=== PATIENT | female | born 1970 | race Caucasian/White ===

== ENCOUNTER 2024-07-02 08:02 | Emergency (ER) | payer BC ==
--- NOTE | 2024-07-02 09:43 | ER ---
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 ll1 Coronavirus screen: Client denies travel out of the [place] in the last 14 days. At this time, the client does not indicate any symptoms associated with coronavirus-19. Ebola Screen: Patient denies travel to an Ebola-affected area in the 21 days before illness onset. Initial Sepsis Screen: Does the patient meet any 2 criteria? No. Patient's initial sepsis screen is negative. Does the patient have a suspected source of infection? No. Patient's initial sepsis screen is negative. Risk Assessment: Do you want to hurt yourself or someone else? Patient reports no desire to harm self or others. Onset of symptoms was July 02, 2024. 08:17 Method Of Arrival: Ambulatory ll1 08:17 Acuity: YADIRA 4 ll1 Triage Assessment: 08:15 General: Appears uncomfortable, Behavior is calm, cooperative, appropriate for age. ll1 Pain: Complains of pain in right wrist Quality of pain is described as aching. Musculoskeletal: Reports pain in right wrist. 10:12 Injury Description: Bruise. 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 - Infectious Disease History:: Denies. - Social history:: Smoking status: Patient denies any tobacco usage or history of. Screenin:11 [facility] ED Fall Risk Assessment (Adult) History of falling in the last 3 months, ll1 including since admission Yes- single mechanical fall (1 pt) Confusion or Disorientation No (0 pts) Intoxicated or Sedated No (0 pts) Impaired Gait No (0 pts) Mobility Assist Device Used No (0 pt) Altered Elimination Yes (1 pt) Score/Fall Risk Level 0 - 2 = Low Risk Maintained a safe environment, Hourly rounding (assess needs \T\ fall precautionary measures) done. Abuse screen: Denies threats or abuse. Nutritional screening: No deficits noted. Tuberculosis screening: No symptoms or risk factors identified. Assessment: 10:10 Reassessment: No changes from previously documented assessment. Patient and/or family ll1 updated on plan of care and expected duration. Pain level reassessed. Patient is alert, oriented x 3, equal unlabored respirations, skin warm/dry/pink. 10:10 Musculoskeletal: Circulation, motion, and sensation intact. Capillary refill < 3 ll1 seconds, in left fingers. Vital Signs: 08:17 BP 131 / 98; Pulse 73; Resp 16; Temp 97.5; Pulse Ox 99% ; Weight 81.65 kg; Height 5 ft. ll1 3 in. ; Pain 10/10; 10:10 BP 143 / 90; Pulse 62; Resp 16; Pulse Ox 99% ; ll1 08:17 Body Mass Index 31.89 (81.65 kg, 160.02 cm) ll1 08:17 Pain Scale: Adult ll1 ED Course: 08:05 Patient arrived in ED. im 08:08 Marylu Chaudhari FNP-C is PHCP. kb 08:08 Abrahan Hester DO is Attending Physician. kb 08:16 Patient has correct armband on for positive identification. Provided Education on: ER ll1 procedures and process. 08:18 Triage completed. ll1 08:18 Arm band placed on Patient placed in an exam room, on a stretcher. ll1 09:04 Wrist Right 3 View In Process Unspecified. EDMS 09:32 Tonya Juarez, WIL is Primary Nurse. ll1 10:03 Orthoglass splint: Sugar tong splint applied on right arm. Sling applied to right arm. zm 10:11 No provider procedures requiring assistance completed. Patient did not have IV access ll1 during this emergency room visit. Administered Medications: No medications were administered Medication: 10:12 VIS not applicable for this client. ll1 Outcome: 09:42 Discharge ordered by . kb 10:11 Discharged to home ambulatory, ll1 10:11 Condition: stable 10:11 Discharge instructions given to patient, Instructed on discharge instructions, follow up and referral plans. no drinking with medication, no driving heavy equipment, medication usage, Demonstrated understanding of instructions, follow-up care, medications, Prescriptions given X 1, 10:13 Patient left the ED. ll1 Signatures: Dispatcher [employer] EDMS Marylu Chaudhari, Tonya Palacio RN RN ll1 Tash Argueta Itzel
--- NOTE | 2024-07-02 09:43 | EDPHYS ---
Physician Documentation [facility] Name: Faith Conte Age: 54 yrs Sex: Female : 1970 Arrival Date: 07/02/2024 Time: 08:02 Bed 11 Private MD: ED Physician Abrahan Hester HPI: 07/02 08:20 This 54 yrs old Female presents to ER via Ambulatory with complaints of Wrist Injury - kb right. 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 kb States she was walking her dog, he tried to run after a cat and twisted her wrist. Denies any other injuries. . 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 - Infectious Disease History:: Denies. - Social history:: Smoking status: Patient denies any tobacco usage or history of. ROS: 08:21 Constitutional: As per HPI kb Exam: 08:21 Constitutional: This is a well developed, well nourished patient who is awake, alert, kb and in no acute distress. Head/Face: Normocephalic, atraumatic. ENT: Moist Mucous membranes Respiratory: Respirations even and unlabored. No increased work of breathing. Talking in full sentences Skin: Warm, dry with normal turgor. Normal color. Neuro: Awake and alert, GCS 15, oriented to person, place, time, and situation. 08:21 Musculoskeletal/extremity: Extremities: grossly normal except: noted in the right wrist: decreased ROM, pain, tenderness, ROM: limited active range of motion due to pain, Circulation is intact in all extremities. Sensation intact. Vital Signs: 08:17 BP 131 / 98; Pulse 73; Resp 16; Temp 97.5; Pulse Ox 99% ; Weight 81.65 kg; Height 5 ft. ll1 3 in. ; Pain 10/10; 10:10 BP 143 / 90; Pulse 62; Resp 16; Pulse Ox 99% ; ll1 08:17 Body Mass Index 31.89 (81.65 kg, 160.02 cm) ll1 08:17 Pain Scale: Adult ll1 MDM: 08:08 Medical Screening Exam initiated kb 09:28 Differential diagnosis: dislocation, closed fracture, sprain. Data reviewed: vital kb signs, nurses notes. Independent interpretation of the following test(s) in the Emergency Department X-Ray: My interpretation is displaced fracture right ulna. Counseling: I had a detailed discussion with the patient and/or guardian regarding the historical points, exam findings, and any diagnostic results supporting the discharge/admit diagnosis, radiology results, the need for outpatient follow up, a orthopedic surgeon, to return to the emergency department if symptoms worsen or persist or if there are any questions or concerns that arise at home. 09:42 ED course: Patient is a 54-year-old female who presents for right wrist pain that kb started just prior to arrival. On exam patient has swelling and tenderness to right wrist. Concern for sprain, contusion, dislocation, fracture. X-ray interpreted by me and reveals displaced fracture of the ulna. Splint and sling ordered. Patient educated on findings and shown the x-ray. Educated to follow-up with orthopedics. Prescription given for tramadol for pain management and discussed use of [id number] ibuprofen for pain as well. Verbal understanding received.. 05 08:48 Order name: Wrist Right 3 View EDMS 07/02 09:29 Order name: Sugar Tong Forearm Splint; Complete Time: 10:03 kb 07/02 09:29 Order name: Sling; Complete Time: 10:03 kb Administered Medications: No medications were administered Disposition: 11:16 I was immediately available on-site in the Emergency Department for consultation in the ms3 care of the patient. Disposition Summary: 07/02/24 09:42 Discharge Ordered Notes: Location: Home Condition: Stable Diagnosis - Displaced comminuted fracture of shaft of ulna, right arm, initial encounter for kb closed fracture Followup: kb - With: Emergency Department - When: As needed - Reason: Worsening of condition Followup: kb - With: Private Physician - When: 2 - 3 days - Reason: Recheck today's complaints, Continuance of care, Re-evaluation by your physician Discharge Instructions: - Discharge Summary Sheet kb - Ulnar Fracture kb Forms: - Medication Reconciliation Form kb - Antibiotic Education kb - Prescription Opioid Use kb - Patient Portal Instructions kb - Leadership Thank You Letter kb - Work release form zm Prescriptions: - Tramadol 50 mg Oral Tablet - take 1 tablet ORAL route every 8 hours as needed; 12 tablet; Refills: 0, kb Product Selection Permitted Signatures: Dispatcher [employer] EDMS Mayrlu Chaudhari, Tonya Palacio RN RN ll1 Abrahan Hester DO DO ms3 Corrections: (The following items were deleted from the chart) 08:12 08:12 Forearm Right+RAD.RAD.BRZ ordered. EDMS EDMS
[2024-07-02 10:21] VITALS: TEMP 97.5; O2SAT 99
[2024-07-02 10:25] VITALS: BP 143/90
--- NOTE | 2024-07-02 10:32 | RAD REPORT ---
EXAM: XR Wrist Right 3 View HISTORY: [facility] MAIN PAIN, MODIFIED ORDER PER SILVANA Bed:IW1 COMPARISON: None TECHNIQUE: 3 views of the left wrist. FINDINGS: Oblique mildly displaced distal radius metaphysis fracture with mild lateral apex angulatio n. Cortical irregularities along the lateral dorsal lunate surface and proximal surface of the triquetrum suggesting fractures as well. Soft tissue swelling about the wrist. No significant degener ative changes are present. IMPRESSION: Oblique mildly displaced distal radial metaphysis fracture. Suspected mild displacement buckle fractu res of the lunate and triquetrum as well.
== END 2024-07-02 10:13 | disposition home or self-care (01) ==
LOC: ER 08:02
PROC: 2W3CX1Z Immobilization of Right Lower Arm using Splint (ICD-10-PCS; principal; 2024-07-02)
DX: S52.251A Displaced comminuted fracture of shaft of ulna, right arm, initial encounter for closed fracture (principal); I10 Essential (primary) hypertension
CPT/HCPCS: 99283

== ENCOUNTER 2024-12-06 09:49 | Emergency (ER) | payer BC ==
--- OUTSIDE RECORDS SUMMARY | 2024-12-06 09:53 | XMS REPORT | Continuity of Care Document ---
Author Name Unknown Address [address] [place] [address] [facility] Address [address] [place] [address] Care Team Providers Care Analytical Research Chemist Name Role Phone EPI HERNÁNDEZ Primary Care Physician NATHAN Vazquez Attending Clinician Unavailable Nathan Fuller MD Attending Clinician Payers Payer Name Policy Type Policy Number Effective Date Expirati on Date Source [facility] [id number] 2023 00:00:00 Problems Condition Name Condition Details Condition Category Status Onset Date Resolution Date Last Treatment Date Treating Clinician Comments Source Closed fracture of distal end of right ulna, unspecifie d fracture morphology , initial encounter Closed fracture of distal end of right ulna, unspecifie d fracture morphology , initial encounter Disease Active 08-03 00:00: 00 [facility] Allergies, Adverse Reactions, Alerts Allergy Name Allergy Type Status Severity Reaction(s) Onset Date Inactive Date Treating Clinician Comments Source NO KNOWN ALLERGIE S Drug Class Active [facility] Social History Social Habit Start Date Stop Date Quantity Comments Source ASSERTION Possible [facility] Tobacco use and exposure 2024-07-03 00:00:00 2024-07-03 00:00:00 Smokeless tobacco non-user [facility] History of Social function 2024-07-03 00:00:00 2024-07-03 00:00:00 [facility] Sex assigned at 1970 00:00:00 1970 00:00:00 [facility] Smoking Status Start Date Stop Date Source Never smoked tobacco [facility] Medications Ordered Medication Name Filled Medication Name Start Date Stop Date Current Medication? Ordering Clinician Indication Dosage Frequency Signature (SIG) Comments Components Source benazepriL 20 mg tablet 07-21 02:10: 56 Yes Take 1 tablet every day by oral route. [facility] hydroCHLORO thiazide 12.5 mg tablet 07-21 02:10: 58 Yes Take 1 tablet every day by oral route. [facility] rosuvastati n 10 mg tablet 07-21 02:10: 56 Yes Take 1 tablet every day by oral route. [facility] traMADoL 50 mg tablet 07-02 00:00: 00 Yes [facility] Vital Signs Vital Name Observation Time Observation Value Comments S elayne Systolic blood pressure 2024-09-24 20:50:00 121 mm[Hg] [facility] Diastolic blood pressure 2024-09-24 20:50:00 82 mm[Hg] [facility] Heart rate 2024-09-24 20:50:00 70 /min [facility] Body height 2024-09-24 20:50:[address] [facility] Body weight 2024-09-24 20:50:[address] [facility] BMI 2024-09-24 20:50:00 32.35 kg/m2 [facility] Oxygen saturation in Arterial blood by Pulse oximetry 2024-09-24 20:50:00 98 /min [facility] Systolic blood pressure 2024-08-03 16:19:00 121 mm[Hg] [facility] Diastolic blood pressure 2024-08-03 16:19:00 83 mm[Hg] [facility] Heart rate 2024-08-03 16:19:00 68 /min [facility] Body temperature 2024-08-03 16:19:00 37 [place]anna [facility] Body height 2024-08-03 16:19:[address] [facility] Body weight 2024-08-03 16:19:[address] [facility] BMI 2024-08-03 16:19:00 33.73 kg/m2 [facility] Oxygen saturation in Arterial blood by Pulse oximetry 2024-08-03 16:19:00 96 /min [place] [facility] Systolic blood pressure 2024-07-20 13:12:00 112 mm[Hg] [facility] Diastolic blood pressure 2024-07-20 13:12:00 59 mm[Hg] [facility] Heart rate 2024-07-20 13:12:00 80 /min [facility] Body temperature 2024-07-20 13:12:00 36.72 Vanna [facility] Respiratory rate 2024-07-20 13:12:00 18 /min [facility] Body height 2024-07-20 13:12:[address] [facility] Body weight 2024-07-20 13:12:[address] [facility] BMI 2024-07-20 13:12:00 33.44 kg/m2 [facility] Oxygen saturation in Arterial blood by Pulse oximetry 2024-07-20 13:12:00 96 /min [facility] Systolic blood pressure 2024-07-03 18:13:00 112 mm[Hg] [facility] Diastolic blood pressure 2024-07-03 18:13:00 75 mm[Hg] [facility] Heart rate 2024-07-03 18:13:00 71 /min [facility] Body temperature 2024-07-03 18:13:00 36.83 Vanna [facility] Body height 2024-07-03 18:13:00 160 cm [facility] Body weight 2024-07-03 18:13:[address] [facility] BMI 2024-07-03 18:13:00 32.98 kg/m2 [facility] Oxygen saturation in Arterial blood by Pulse oximetry 2024-07-03 18:13:00 94 /min [place] [facility] Procedures Procedure Date / Time Performed Performing Clinicia n Source XR FOREARM 2 VW RIGHT 2024-09-24 21:00:01 Nathan Fuller [facility] XR WRIST 3+ VW RIGHT 2024-09-24 20:59:42 Alina [facility] XR FOREARM 2 VW RIGHT 2024-07-20 14:12:00 Alina laxmi [facility] Encounters Start Date/Time End Date/Time Encounter Type Admission Type Attending [facility] Facility Care Department Encounter ID Source 2024-09-24 15:54:32 2024-09-24 23:59:00 [facility] 1.2.114 350.1.13.10 [id number] [id number] [facility] 2024-09-24 16:00:00 2024-09-24 16:14:16 [facility] 1.2.114 350.1.13.10 [id number] [id number] [facility] 2024-09-24 15:49:24 2024-09-24 15:53:00 [facility] 1.2.114 350.1.13.10 [id number] [id number] [facility] 2024-08-03 11:23:04 2024-08-03 23:59:00 [facility] 1.2.114 350.1.13.10 [id number] [id number] [facility] 2024-08-03 11:00:00 2024-08-03 12:38:48 [facility] 1.2.114 350.1.13.10 [id number] [id number] [facility] 2024-07-20 08:18:36 2024-07-20 23:59:00 Hospital En[facility] [id number] 350.1.13.10 [id number] [id number] [facility] 2024-07-20 08:00:00 2024-07-20 09:34:03 Office Visit Gali FULLER [facility] RAQU[facility] [id number] 350.1.13.10 [id number] [id number] [facility] 2024-07-03 13:00:00 2024-07-03 13:38:48 Outpatient R ALINA [facility] [id number] [facility] 2024-07-03 13:00:00 2024-07-03 13:38:48 [facility] [id number] [id number] [id number] [id number] [facility] Results Test Description Test Time Test Comments Results Resul t Comments Source XR Forearm 2 vw right 2024-07-20 17:51:06 EXAM: XR FOREARM 2 VW RIGHT HISTORY: ulna fx Room 1 COMPARISON: None. FINDINGS: A mildly displaced fracture of the distal ulna is seen with intra-articulare xtension. Soft tissue swelling is present about the forearm and wrist. Nojoint dislocation is seen. [facility]
[2024-12-06] MEDS ORDERED: MORPHINE 4 MG/ML SYR ONE (10:06)
[2024-12-06] MEDS ORDERED: NA CHLORIDE 0.9% 1,000 ML ONE ×2 (10:06→11:48)
[2024-12-06] MEDS ORDERED: ONDANSETRON 4 MG/2 ML VIAL ONE (10:06)
[2024-12-06 10:34] LABS: Absolute Lymphocytes (CBC) 1.2 K/uL (0.7-4.9); Hematocrit 46.5 % (36.0-45.0); Hemoglobin 15.8 g/dL (12.0-15.0); MCH 30.0 pg (27.0-35.0); MCHC 34.0 g/dL (32.0-36.0); MCV 88.4 fL (80-100); MPV 8.3 fL (7.6-11.3); Nucleated RBC Absolute Count 0.0 (0-0); Nucleated Red Blood Cells % 0.4 % (0-0); RBC Red Blood Cell Count 5.26 M/uL (3.86-4.86); White Blood Count 7.10 thou/uL (4.3-10.9)
[2024-12-06 10:43] LABS: ALT/SGPT 41.0 U/L (13-56); AST/SGOT 21.0 U/L (15-37); Albumin 4.1 g/dL (3.4-5.0); Albumin/Globulin Ratio 1.0 (1.1-1.8); Alkaline Phosphatase 85.0 U/L (45-117); Anion Gap 10.8 mEq/L (5.0-15.0); BUN Blood Urea Nitrogen 23.0 mg/dL (7-18); Globulin 4.1 g/dL (2.3-3.5); Glucose Level 80.0 mg/dL (74-106); Lipase 34.0 U/L (13-75); Potassium 3.8 mEq/L (3.5-5.1)
[2024-12-06 12:07] LABS: Sqamous Epithelial <5 /HPF (None Seen); Urine Culture Reflex Order NOT NEEDED; Urine Microscopic Reflex YN ORDER UMIC
--- NOTE | 2024-12-06 12:56 | EDPHYS ---
Physician Documentation [facility] Name: Faith Conte Age: 54 yrs Sex: Female : 1970 Arrival Date: 12/06/2024 Time: 09:49 Bed 13 Private MD: ED Physician Sandro Carballo HPI: 12/06 10:01 This 54 yrs old Female presents to ER via Ambulatory with complaints of dr5 Vomiting. 10:01 The patient presents to the emergency department with nausea, vomiting. Onset: The dr5 symptoms/episode began/occurred 2 day(s) ago. Patient is a 54-year-old female with no past medical history coming in with nausea, vomiting after starting Wegovy for the first time on Tuesday evening. Sister at bedside states that she took 2.4 mg of Wegovy and has been vomiting since. Patient denies chest pain, shortness of breath, diarrhea, or constipation.. Historical: - Home Meds: 10:13 benazepril oral [Active]; Hydrochlorothiazide Oral [Active]; rovustatin [Active]; cc6 - PMHx: 10:13 Hypertensive disorder; cc6 - PSHx: 10:13 Appendectomy; section; cc6 - Immunization history:: Adult Immunizations up to date. - Infectious Disease History:: Denies. - Social history:: Smoking status: Patient denies any tobacco usage or history of. Patient uses alcohol, occasionally. ROS: 10:03 Constitutional: as per hpi dr5 Exam: 10:06 Constitutional: This is a well developed, well nourished patient who is awake, alert, dr5 and in no acute distress. Head/Face: Normocephalic, atraumatic. Eyes: Pupils equal round and reactive to light, extra-ocular motions intact. Lids and lashes normal. Conjunctiva and sclera are non-icteric and not injected. Cornea within normal limits. Periorbital areas with no swelling, redness, or edema. Neck: Trachea midline, no thyromegaly or masses palpated, and no cervical lymphadenopathy. Supple, full range of motion without nuchal rigidity, or vertebral point tenderness. No Meningismus. Chest/axilla: Normal chest wall appearance and motion. Nontender with no deformity. No lesions are appreciated. Cardiovascular: Regular rate and rhythm with a normal S1 and S2. Normal PMI, no JVD. No pulse deficits. Respiratory: Lungs have equal breath sounds bilaterally, clear to auscultation. No rales, rhonchi or wheezes noted. No increased work of breathing, no retractions or nasal flaring. Abdomen/GI: Soft, non-tender, non-distended Back: No spinal tenderness. No costovertebral tenderness. Full range of motion. Skin: Warm, dry with normal turgor. Normal color with no rashes, no lesions, and no evidence of cellulitis. MS/ Extremity: Pulses equal, no cyanosis. Neurovascular intact. Full, normal range of motion. Neuro: Awake and alert, GCS 15, oriented to person, place, time, and situation. Cranial nerves II-XII grossly intact. Motor strength 5/5 in all extremities. Sensory grossly intact. Cerebellar exam normal. Normal gait. Vital Signs: 09:54 BP 137 / 79; Pulse 86; Resp 16; Temp 97.8(TE); Pulse Ox 97% ; Weight 80.74 kg; Height 5 cc6 ft. 3 in. ; Pain 7/10; 11:45 BP 135 / 82; Pulse 78; Resp 18; Pulse Ox 99% on R/A; cc6 13:13 BP 128 / 78; Pulse 81; Resp 18; Temp 97.5; Pulse Ox 98% on R/A; cc6 09:54 Body Mass Index 31.53 (80.74 kg, 160.02 cm) cc6 09:54 Pain Scale: Adult cc6 MDM: 09:53 Medical Screening Exam initiated dr5 15:33 Differential diagnosis: Nonspecific abd pain, viral gastroenteritis, gastroenteritis, dr5 Wegovy overdose, intractable nausea vomiting. Data reviewed: vital signs, nurses notes, lab test result(s), amylase and lipase, CBC, white blood cell count, hemoglobin, hematocrit, platelets, electrolytes, sodium, potassium, chloride, serum bicarbonate, BUN, creatinine, serum glucose, urinalysis. Consideration of Admission/Observation Escalation of care including admission/observation considered. Admission considered patient was unable to tolerate p.o. or had acute kidney injury. I considered the following discharge prescriptions or medication management in the emergency department I discussed and recommended Over The Counter medications, Medications were administered in the Emergency Department. See MAR. Test considered but Not performed: CT: CT was considered but deferred due to patient having normal labs and feeling better after liter of fluid.. Historians other than the Patient: Spouse/Significant Other: and mom. Care significantly affected by the following chronic conditions: Hypertension. Care significantly affected by the following Social Determinants of Health: Poor access to healthcare and/or lack of insurance, Poor access to transportation, Problems related to employment. Counseling: I had a detailed discussion with the patient and/or guardian regarding the historical points, exam findings, and any diagnostic results supporting the discharge/admit diagnosis, the presence of at least one elevated blood pressure reading (>120/80) during this emergency department visit, lab results, the need for outpatient follow up, for definitive care, a family practitioner, to return to the emergency department if symptoms worsen or persist or if there are any questions or concerns that arise at home. Medication response: NS x 2. Response to treatment: the patient's symptoms have resolved after treatment, the patient is now symptom free. Special discussion: I discussed with the patient/guardian in detail that at this point there is no indication for admission to the hospital. It is understood, however, that if the symptoms persist or worsen the patient needs to return immediately for re-evaluation. Based on the history and exam findings, there is no indication for further emergent testing or inpatient evaluation. I discussed with the patient/guardian the need to see the primary care provider for further evaluation of the symptoms. ED course: Patient did not find to have electrolyte abnormality or pancreatitis. Recommended patient follow with primary care doctor regarding Wegovy dosing. Patient took highest dose of Wegovy which is likely the reason that patient has nausea and vomiting. Patient reports he is so much better. Patient passed p.o. challenge. All question answered. Strict ER precautions given. 12/06 10: Order name: CBC with Diff; Complete Time: 10:42 dr5 12/06 10:01 Order name: CMP; Complete Time: 10:43 dr5 12/06 10:01 Order name: Lipase; Complete Time: 10:43 dr5 12/06 10:01 Order name: UA Rfx Tae Cult if indicated; Complete Time: 12:17 dr5 12/06 10:01 Order name: Test, Urine; Complete Time: 12:17 dr5 12/06 10:01 Order name: IV Saline Lock; Complete Time: 10:23 dr5 12/06 10:01 Order name: Labs collected and sent; Complete Time: 10:23 dr5 Administered Medications: 10:21 Drug: Ondansetron IVP 4 mg IVP once; over 2 minutes Route: IVP; Site: right antecubital;kb4 10:45 Follow up: Response: No adverse reaction; Nausea is decreased cc6 10:21 Drug: morphine IVP or IV 4 mg IVP once over 4 mins Route: IVP; Infused Over: 4 mins; kb4 Site: right antecubital; 10:45 Follow up: Response: No adverse reaction; Pain is decreased cc6 10:21 Drug: NS 0.9% IV 1000 ml IV at 1 bolus Per protocol; to be given as a bolus over 60 kb4 minutes Route: IV; Rate: 1 bolus; Site: right antecubital; 11:51 Drug: NS 0.9% IV 1000 ml IV at 1000 ml once; to be given as a bolus over 60 minutes cc6 Route: IV; Rate: 1000 ml; Site: right antecubital; 13:12 Follow up: Response: No adverse reaction; IV Status: Completed infusion; IV Intake: cc6 1000ml 13:12 Drug: Ketorolac IVP 15 mg IVP once Route: IVP; Site: right antecubital; cc6 13:13 Follow up: Response: No adverse reaction cc6 Disposition Summary: 12/06/24 12:55 Discharge Ordered Notes: Location: Home dr5 Condition: Stable dr5 Diagnosis - Dehydration dr5 Followup: dr5 - With: Emergency Department - When: As needed - Reason: Worsening of condition Followup: dr5 - With: Private Physician - When: 1 - 2 days - Reason: Recheck today's complaints, Continuance of care, Re-evaluation by your physician Discharge Instructions: - Discharge Summary Sheet dr5 - Dehydration, Adult dr5 Forms: - Medication Reconciliation Form dr5 - Patient Portal Instructions dr5 - Leadership Thank You Letter dr5 Prescriptions: - Zofran 4 mg Oral Tablet - take 1 tablet ORAL route every 12 hours As needed; 20 tablet; Refills: 0, dr5 Product Selection Permitted Addendum: 12/08/2024 07:26 Co-signature as Attending Physician, Sandro Carballo MD I agree with the assessment and c mathis plan of care. Signatures: Dispatcher [employer] Sandro Mg MD MD cha Cardoza, Cassandra, RN RN cc6 Solis, Abdullahi, LOG PEELER-C LOG PEELER-Cdr5 Stacey Villatoro, RN RN kb4
--- NOTE | 2024-12-06 12:56 | ER ---
Nurse's Notes [facility] Name: Faith Conte Age: 54 yrs Sex: Female : 1970 Arrival Date: 12/06/2024 Time: 09:49 Bed 13 Private MD: Diagnosis: Dehydration Presentation: 12/06 09:54 Chief complaint: Patient states: started Wagovy 2.4 mg Tuesday evening and has been cc6 sick ever since, throws up every time she eats or drinks. Feels dehydrated and has a headache. 09:54 Coronavirus screen: At this time, unable to obtain information related to travel cc6 outside the [place] At this time, the client does not indicate any symptoms associated with coronavirus-19. Ebola Screen: No symptoms or risks identified at this time. Initial Sepsis Screen: Does the patient meet any 2 criteria? No. Patient's initial sepsis screen is negative. Does the patient have a suspected source of infection? No. Patient's initial sepsis screen is negative. Risk Assessment: Do you want to hurt yourself or someone else? Patient reports no desire to harm self or others. Onset of symptoms was December 04, 2024. 09:54 Method Of Arrival: Ambulatory cc6 09:54 Acuity: YADIRA 3 cc6 Triage Assessment: 09:54 General: Appears in no apparent distress. comfortable, Behavior is calm, cooperative, cc6 appropriate for age. Pain: Complains of pain in forehead Pain does not radiate. Pain currently is 7 out of 10 on a pain scale. Quality of pain is described as pressure. EENT: No deficits noted. Neuro: Level of Consciousness is awake, alert, obeys commands, Oriented to person, place, time, situation, Appropriate for age. 09:54 Cardiovascular: Patient's skin is warm and dry. Respiratory: Airway is patent cc6 Respiratory effort is even, unlabored, Respiratory pattern is regular, symmetrical. GI: Reports nausea, vomiting. : Reports frequent UTI. Derm: No signs and/or symptoms reported regarding the dermatologic system. Musculoskeletal: No signs and/or symptoms reported regarding the musculoskeletal system. Historical: - Home Meds: 10:13 benazepril oral [Active]; Hydrochlorothiazide Oral [Active]; rovustatin [Active]; cc6 - PMHx: 10:13 Hypertensive disorder; cc6 - PSHx: 10:13 Appendectomy; section; cc6 - Immunization history:: Adult Immunizations up to date. - Infectious Disease History:: Denies. - Social history:: Smoking status: Patient denies any tobacco usage or history of. Patient uses alcohol, occasionally. Screenin:54 [facility] ED Fall Risk Assessment (Adult) History of falling in the last 3 months, cc6 including since admission No falls in past 3 months (0 pts) Confusion or Disorientation No (0 pts) Intoxicated or Sedated No (0 pts) Impaired Gait No (0 pts) Mobility Assist Device Used No (0 pt) Altered Elimination No (0 pt) Score/Fall Risk Level 0 - 2 = Low Risk Oriented to surroundings, Maintained a safe environment, Hourly rounding (assess needs \T\ fall precautionary measures) done. Abuse screen: Denies threats or abuse. Denies injuries from another. Nutritional screening: No deficits noted. Tuberculosis screening: No symptoms or risk factors identified. Assessment: 09:54 Reassessment: SEE TRIAGE. cc6 10:45 Reassessment: Patient and/or family updated on plan of care and expected duration. Pain cc6 level reassessed. Patient is alert, oriented x 3, equal unlabored respirations, skin warm/dry/pink. 11:30 Reassessment: Patient and/or family updated on plan of care and expected duration. Pain cc6 level reassessed. Patient is alert, oriented x 3, equal unlabored respirations, skin warm/dry/pink. Vital Signs: 09:54 BP 137 / 79; Pulse 86; Resp 16; Temp 97.8(TE); Pulse Ox 97% ; Weight 80.74 kg; Height 5 cc6 ft. 3 in. ; Pain 7/10; 11:45 BP 135 / 82; Pulse 78; Resp 18; Pulse Ox 99% on R/A; cc6 13:13 BP 128 / 78; Pulse 81; Resp 18; Temp 97.5; Pulse Ox 98% on R/A; cc6 09:54 Body Mass Index 31.53 (80.74 kg, 160.02 cm) cc6 09:54 Pain Scale: Adult cc6 ED Course: 09:53 Patient arrived in ED. im 09:53 Abdullahi Solis FNP-C is PHCP. dr5 09:53 Sandro Carballo MD is Attending Physician. dr5 09:54 Patient has correct armband on for positive identification. Bed in low position. Call cc6 light in reach. Side rails up X 1. Provided Education on: USE OF CALL LIGHT. 09:56 Arm band placed on Patient placed in an exam room, on a stretcher. ll1 10:04 Mirtha Heaton, RN is Primary Nurse. cc6 10:13 Triage completed. cc6 10:23 Inserted saline lock: 20 gauge in right antecubital area, using aseptic technique. kb4 Blood collected. Flushed with 10 mL NS. 13:14 No provider procedures requiring assistance completed. IV discontinued, intact, cc6 bleeding controlled, No redness/swelling at site. Pressure dressing applied. Administered Medications: 10:21 Drug: Ondansetron IVP 4 mg IVP once; over 2 minutes Route: IVP; Site: right antecubital;kb4 10:45 Follow up: Response: No adverse reaction; Nausea is decreased cc6 10:21 Drug: morphine IVP or IV 4 mg IVP once over 4 mins Route: IVP; Infused Over: 4 mins; kb4 Site: right antecubital; 10:45 Follow up: Response: No adverse reaction; Pain is decreased cc6 10:21 Drug: NS 0.9% IV 1000 ml IV at 1 bolus Per protocol; to be given as a bolus over 60 kb4 minutes Route: IV; Rate: 1 bolus; Site: right antecubital; 11:51 Drug: NS 0.9% IV 1000 ml IV at 1000 ml once; to be given as a bolus over 60 minutes cc6 Route: IV; Rate: 1000 ml; Site: right antecubital; 13:12 Follow up: Response: No adverse reaction; IV Status: Completed infusion; IV Intake: cc6 1000ml 13:12 Drug: Ketorolac IVP 15 mg IVP once Route: IVP; Site: right antecubital; cc6 13:13 Follow up: Response: No adverse reaction cc6 Medication: 13:14 VIS not applicable for this client. cc6 Intake: 13:12 IV: 1000ml; Total: 1000ml. cc6 Outcome: 12:55 Discharge ordered by . dr5 13:14 Discharged to home ambulatory, with significant other, cc6 13:14 Condition: good 13:14 Discharge instructions given to patient, Instructed on discharge instructions, follow up and referral plans. medication usage, Demonstrated understanding of instructions, follow-up care, medications, Prescriptions given X 1, 13:14 Patient left the ED. cc6 Signatures: Tonya Juarez RN RN ll1 Talya Reardon Cassandra, RN RN cc6 Abdullahi Solis, CUPOLA TENDER-C CUPOLA TENDER-Cdr5 Stacey Villatoro RN RN kb4 Corrections: (The following items were deleted from the chart) 10:45 10:45 Response: No adverse reaction; Nausea is decreased cc6 cc6
[2024-12-06] MEDS ORDERED: KETOROLAC 30 MG/ML INJ ONE (13:06)
[2024-12-06 13:54] VITALS: BP 128/78; TEMP 97.5; O2SAT 98
== END 2024-12-06 13:14 | disposition home or self-care (01) ==
LOC: ER 09:49
DX: E86.0 Dehydration (principal); I10 Essential (primary) hypertension
CPT/HCPCS: 96361; 85025; 81001; 36415; 81025; 83690; 80053; 96375; 96374; 99284; J1885; J2405; J7030 ×2